=== PATIENT | male | born 1940 | race Caucasian/White ===

== ENCOUNTER → 2017-02-16 | Outpatient (CLI) | payer OTHER, BC ==
[~2017-02-16] MED LIST: ASPIRIN81 M2 PO; BAYER CHILDREN'81 M1 PO; GLYBURID-METFO1 EAC2 PO; GLYBURIDE-METF1 EAC1 PO; ISTALOL5 ML BOTH EYES; JANUVIA100 MG PO; KEFLEX500 MG PO; LIPITOR20 MG PO; LIPITOR80 MG PO; LISINOPRIL20 MG PO; LUMIGAN 0.50 DROP/22 BOTH EYES; NIASPAN500 MG PO; RANITIDINE HCL150 M1 PO; RANITIDINE HCL150 MG PO; XALATAN2.5 ML OP; ZESTRIL,PRINIVI20 MG PO
== END | disposition home or self-care (01) ==
LOC: EEG 08:48
DX: R41.0 Disorientation, unspecified (principal)
CPT/HCPCS: 95819